=== PATIENT | male | born 1945 | race Caucasian/White ===

== ENCOUNTER 2016-09-22 07:26 | Emergency (ER) | payer OTHER ==
[2016-09-22 07:33] VITALS: PULSE 70
--- NOTE | 2016-09-22 07:39 | EDPHY ---
H & P Stated Complaint: left flank pain thinks kidney stone, hx of stones Time Seen by Provider: 09/22/16 07:38 - Personal History Current Tetanus/Diphtheria Vaccine: Yes Current Tetanus Diphtheria and Acellular Pertussis (TDAP): Yes - Medical/Surgical History Hx Asthma: No Hx Chronic Respiratory Disease: No Hx Diabetes: No Hx Cardiac Disease: No Hx Renal Disease: No Hx Cirrhosis: No Hx Alcoholism: No Hx HIV/AIDS: No Hx Splenectomy or Spleen Trauma: No Other PMH: kidney stone, ortho fx's. prostate ca, high cholesterol - Social History Smoking Status: Never smoked Constitutional: Initial Vital Signs Temperature (C) 36.4 C 09/22/16 07:30 Heart Rate 70 09/22/16 07:30 Respiratory Rate 18 09/22/16 07:30 Blood Pressure 121/71 H 09/22/16 07:30 O2 Sat (%) 91 L 09/22/16 07:30 O2 Delivery Mode Room Air Allergies/Adverse Reactions: No Known Allergies Allergy (Unverified 09/22/16 07:33) Home Medications: Medication Instructions Recorded Amoxicillin/Clavulanate Pot 875 mg PO BID #20 tab 09/22/16 [Augmentin 875 MG TAB (RX)] Aspirin [Aspirin 81mg (*)] 09/22/16 Hydrocodone/APAP 5/325 [Stanley 1 - 2 each PO Q4-6PRN PRN #20 tab 09/22/16 5/325] Ibuprofen 600 mg PO 09/22/16 Myrnetriq 09/22/16 Potassium Citrate [Urocit-K 5meq 0 meq PO 09/22/16 (*)] UBIDECARENONE [CO Q-10] 2.5 gm PO 09/22/16 Medical Decision Making ED Course/Re-evaluation: CHIEF COMPLAINT: Left flank pain HISTORY OF PRESENT ILLNESS: The patient is a 70 y/o male, with a history of 5 previous kidney stones, complaining of constant left flank pain onset last evening. He also has a history of cystic kidneys with baseline hematuria. He initially attributed his discomfort to eating too much ice cream last night but it worsened throughout the night. He notes he had a normal bowel movement and denies dysuria, hematuria, fever, or vomiting. He came into the ED because he has "history of not reacting to kidney stones fast enough" and was scheduled to fly back to [place] this morning. He has been having thoracic back pain from playing tennis recently and picked up a 30lb child yesterday. He feels like his pain has improved currently. REVIEW OF SYSTEMS: A 10 point review of systems was performed and is negative with the exception of the elements mentioned in the history of present illness. PHYSICAL EXAM: HR, BP, O2 Sat, RR. Temp noted General Appearance: Alert, well hydrated, appropriate, and non-toxic appearing. Head: Atraumatic without scalp tenderness or obvious injury Eyes: Pupils equal, round, reactive to light and accommodation, EOMI, no trauma , no injection. Ears: Clear bilaterally, no perforation, normal landmarks Nose: Atraumatic, no rhinorrhea, clear. Throat: There is no erythema or exudates, no lesions, normal tonsils, mucus membranes moist. Neck: Supple, nontender, no lymphadenopathy. Respiratory: No retractions, no distress, no wheezes, and no accessory muscle use. Lungs are clear to auscultation bilaterally. Cardiovascular: Regular rate and rhythm, no murmurs, rubs, or gallops. Good capillary refill all extremities. Gastrointestinal: Abdomen is soft, nontender, non-distended, no masses, no rebound, no guarding, no peritoneal signs. Musculoskeletal: Normal active ROM of all extremities, atraumatic. Neurological: Alert, appropriate, and interactive. The patient has normal DTRs and non-focal cranial nerves, motor, sensory, and cerebellar exam. Skin: No rashes, good turgor, no nodules on palpation. Past medical history: Prostate cancer, kidney cysts followed for the past several years, baseline hematuria. Past surgical history: nothing recent Family history: Noncontributory Social history: Family member at bedside. Scheduled to fly back to [place] this morning. DIAGNOSTICS/PROCEDURES/CRITICAL CARE TIME: Study: CT of the Abdomen/Pelvis without IV contrast Indication: flank pain Results: CT scan of the abdomen was obtained. The results of the study are uncomplicated mild descending diverticulitis, no perforation, no abscess, cystic kidney without obstructing stones, incidental finding of gall stones. The study was read by the radiologist, Dr. Salazar. I viewed the images myself on the PACS system. DIFFERENTIAL DIAGNOSIS: The differential diagnosis for the patient's flank pain included but was not limited to musculoskeletal causes, kidney stone, pyelonephritis, shingles, diverticulitis, appendicitis, and aortic aneurysm. MEDICAL DECISION MAKING: This is a largely healthy 70 y/o male from [place] who presents with mild-to- moderate left flank pain for the last 12 hours. He has a history of cystic kidneys and has passed at least 5 previous kidney stones. He has no CVA tenderness on exam. His urine dip shows RBCs, but the patient reports he has baseline microscopic hematuria from his cystic kidneys. He declines pain medication at this time. Plan for abdominal CT to rule out kidney stone or other abdominopelvic process. CT is positive for mild descending colon diverticulitis. He does have cystic kidneys without evidence of obstructing stone. The patient is well-aware of this condition and has been followed by his doctor for years. I discussed findings with the patient and answered all his questions. He will be discharged on Augmentin with recommendation to follow up with his PCP upon his return home. Return precautions given. He agrees with this plan. - Data Points Laboratory Results: 09/22/16 07:45 Urine Color YELLOW Urine Appearance CLEAR Urine pH 6.0 (5.0-7.5) Ur Specific Solon 1.018 (1.002-1.030) Urine Protein NEGATIVE (NEGATIVE) Urine Ketones NEGATIVE (NEGATIVE) Urine Blood 2+ H (NEGATIVE) Urine Nitrate NEGATIVE (NEGATIVE) Urine Bilirubin NEGATIVE (NEGATIVE) Urine Urobilinogen NEGATIVE EU EU (0.2-1.0) Ur Leukocyte Esterase NEGATIVE (NEGATIVE) Urine RBC 10-15 /hpf H /hpf (0-3) Urine WBC 1-3 /hpf /hpf (0-3) Ur Epithelial Cells NONE SEEN /lpf /lpf (NONE-1+) Urine Mucus TRACE /lpf /lpf (NONE-1+) Ur Culture Indicated? NOT INDICATED (NI) Urine Glucose NEGATIVE (NEGATIVE) Departure - Departure Disposition: Home, Routine, Self-Care Clinical Impression: Diverticulitis Qualifiers: Diverticulitis site: large intestine Diverticulitis bleeding: without bleeding Diverticulitis complication: without perforation or abscess Qualified Code(s): K57.32 - Diverticulitis of large intestine without perforation or abscess without bleeding Condition: Good Instructions: Diverticulitis (ED) Additional Instructions: 1. Take Augmentin as prescribed. Be sure to complete the entire prescription. 2. Use Stanley as prescribed if needed for pain. 3. Follow up with your primary care provider or GI doctor upon your return home. 4. Return to the ED for any worsening of condition. Referrals: KAMILAH KENNEY [Other] - As per Instructions Stand Alone Forms: Airline Excuse Prescriptions: Amoxicillin/Clavulanate Pot [Augmentin 875 MG TAB (RX)] 875 mg PO BID #20 tab Hydrocodone/APAP 5/325 [Stanley 5/325] 1 - 2 each PO Q4-6PRN PRN #20 tab PRN Reason: Pain, Moderate Report Scribed for: Mendez Cedeño Report Scribed by: Soumya Johnson Date of Report: 09/22/16 Time of Report: 07:47
[2016-09-22 08:06] LABS: COLOR YELLOW; LEUKOCYTE ESTERASE,URINE NEGATIVE (NEGATIVE); NITRITE,URINE NEGATIVE (NEGATIVE)
[2016-09-22 08:10] LABS: MUCUS TRACE /lpf (NONE-1+)
[2016-09-22] MEDS ORDERED: AMOXICILLIN/CLAVULANATE POT 875/125 MG TAB PO ONE (08:26)
[2016-09-22 09:07] VITALS: BP 120/75; RESP 16; TEMP 97.7; O2SAT 98
== END 2016-09-22 09:03 | disposition home or self-care (01) ==
DX: K57.32 Diverticulitis of large intestine without perforation or abscess without bleeding (principal); Z79.82 Long term (current) use of aspirin; Z85.46 Personal history of malignant neoplasm of prostate

== ENCOUNTER 2017-12-14 07:52 | Observation (INO) | payer OTHER ==
--- NOTE | 2017-12-14 08:30 | CPEKG ---
Heart Rate: 62 RR Interval: 968 P-R Interval: 204 QRSD Interval: 88 QT Interval: 432 QTC Interval: 439 P Caroleen: 57 QRS Caroleen: -15 T Wave Caroleen: 8 EKG Severity - BORDERLINE ECG - EKG Impression: SINUS RHYTHM EKG Impression: BORDERLINE LEFT AXIS DEVIATION EKG Impression: BORDERLINE T ABNORMALITIES, ANTERIOR LEADS Electronically Signed By: Coleman Guzman 14-Dec-2017 14:55:05
[2017-12-14] MEDS ORDERED: NS 500 ML IV ONE (08:34)
[2017-12-14 08:53] LABS: PLATELET COUNT 206 10^3/uL (150-400)
--- NOTE | 2017-12-14 09:37 | EDPHY ---
H & P Time Seen by Provider: 12/14/17 08:56 HPI/ROS: HPI Near fainting. 71-year-old male by private vehicle with his daughter. This patient is from [place]. He is visiting family here in [place]. He flew to [place] on Thursday from [place]. He reports that on Thursday and Thursday he had some diarrhea. He reports having intermittent lightheadedness at that time. He reports he then felt better Thursday. This morning he woke and had a small amount of loose stools. He reports that this morning he has felt very lightheaded and states that he feels like he is going to faint. He has had multiple episodes of this. Denies any associated headache, chest pain, palpitations, shortness of breath. No loss of sensation or weakness in his extremities. He reports that he has had this in the past but to a much lesser extent. Usually after a diarrheal illness. 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 He has a history of coronary artery disease and recently had an unremarkable stress echocardiogram. He has been on a Holter monitor which was not showed any remarkable findings. He denies vertigo. ROS: Constitutional: No fever, no chills. As above. Eyes: No discharge. No changes in vision. ENT: No sore throat. No nasal congestion or rhinorrhea. Respiratory: No cough. No shortness of breath. Cardiac: No chest pain, no palpitations. Gastrointestinal: No abdominal pain, no vomiting, no diarrhea. Genitourinary: No hematuria. No dysuria or increased frequency with urination. Musculoskeletal: No back pain. No neck pain. No myalgias or arthralgias. Skin: No rashes. Neurological: No headache. No focal weakness or altered sensation. Past medical history: Kidney stones, orthopedic injuries, prostatectomy, prostate cancer, hyperlipidemia, renal cysts, diverticulitis, coronary artery disease. Social history: Nonsmoker. Here with daughter. No alcohol. As above. Physical Exam: General Appearance: Alert, no distress. He is not in any distress. This patient is responding to questions appropriately and in full sentences. This patient appears well-hydrated and well-nourished. Eyes: Pupils equal and round and reactive to light at 2-1 mm bilaterally, no pallor or injection. No lid edema, erythema or injection. ENT, Mouth: Mucous membranes are moist. The pharyngeal tissues are unremarkable. No edema or swelling. No asymmetry suggestive of abscess. No erythema or exudates. Respiratory: There are no retractions, lungs are clear to auscultation with good air movement bilaterally. Cardiovascular: Regular rate and rhythm. No murmur. Gastrointestinal: Abdomen is soft and nontender, no masses, bowel sounds normal. No focal tenderness at McBurney's point. No Gatica sign. Neurological: Motor sensory function is grossly intact. Cranial nerves are normal. Gait is normal. Skin: Warm and dry, no rashes. Musculoskeletal: Neck is supple and nontender. Extremities are symmetrical. All joints range without pain or impingement. Psychiatric: No agitation. No depression. Database: EKG: EKG time is 8:20 a.m.; EKG shows a narrow complex normal sinus rhythm with a ventricular rate of 62. The CO, QRS, QT intervals are within normal limits. T- wave flattening and inversion leads V1 through V3. There are no other ST-T wave changes indicative of ischemic or injury pattern. No evidence of right heart strain. Interpreted by me. Imaging: Procedures: Emergency department course: Vital signs reviewed. He is hypertensive but vital signs are otherwise normal. Neurologically the patient is stable. EKG obtained and reviewed by myself. He will be given 500 cc of IV normal saline. 9:15 a.m., patient re-evaluated. Resting comfortably at this time. Vital signs reviewed. Narrow complex sinus rhythm with ventricular rate of 65 on the monitor. Blood pressure 157/92. Pulse oximetry 96% on room air. Results of diagnostic workup discussed with him and his daughter. He states that he still feels intermittently lightheaded. Again he denies vertigo. Repeat neurologic Assessment is nonfocal. I discussed admission to our hospitalist service for telemetry monitoring and further evaluation. He consents. Hospitalist paged. 9:45 a.m., spoke with on-call hospitalist. Patient accepted for admission to telemetry observation by Dr. Cedrick Mansfield. Patient's remaining emergency department course under my care uneventful. He was admitted in stable condition. Differential Diagnosis: The differential diagnosis on this patient includes but is not limited to vasovagal syncope, arrhythmia. Pulmonary embolism, subarachnoid hemorrhage, CVA , acute CT unlikely. This represents a partial list of diagnoses considered. These considerations are based on history, physical exam, past history, reassessment and diagnostic testing. Smoking Status: Never smoked Constitutional: Initial Vital Signs Temperature (C) 36.9 C 12/14/17 08:04 Heart Rate 67 12/14/17 08:04 Respiratory Rate 18 12/14/17 08:04 Blood Pressure 182/100 H 12/14/17 08:04 O2 Sat (%) 97 12/14/17 08:04 O2 Delivery Mode Room Air Allergies/Adverse Reactions: No Known Allergies Allergy (Unverified 12/14/17 08:02) Home Medications: Medication Instructions Recorded Aspirin [Aspirin 81mg (*)] 09/22/16 Ibuprofen 600 mg PO 09/22/16 Myrnetriq 09/22/16 Potassium Citrate [Urocit-K 5meq 0 meq PO 09/22/16 (*)] UBIDECARENONE [CO Q-10] 2.5 gm PO 09/22/16 Multivitamins 12/14/17 Medical Decision Making - Data Points Laboratory Results: Laboratory Results 12/14/17 08:40 12/14/17 08:40 12/14/17 12/14/17 12/14/17 08:45 08:40 08:40 WBC 5.15 10^3/uL 10^3/uL (3.80-9.50) RBC 4.97 10^6/uL 10^6/uL (4.40-6.38) Hgb 16.2 g/dL g/dL (13.7-17.5) Hct 45.2 % % (40.0-51.0) MCV 90.9 fL fL (81.5-99.8) MCH 32.6 pg pg (27.9-34.1) MCHC 35.8 g/dL g/dL (32.4-36.7) RDW 12.4 % % (11.5-15.2) Plt Count 206 10^3/uL 10^3/uL (150-400) MPV 9.2 fL fL (8.7-11.7) Neut % (Auto) 63.2 % % (39.3-74.2) Lymph % (Auto) 27.2 % % (15.0-45.0) Livingston % (Auto) 8.0 % % (4.5-13.0) Eos % (Auto) 1.0 % % (0.6-7.6) Baso % (Auto) 0.4 % % (0.3-1.7) Nucleat RBC Rel Count 0.0 % % (0.0-0.2) Absolute Neuts (auto) 3.26 10^3/uL 10^3/uL (1.70-6.50) Absolute Lymphs (auto) 1.40 10^3/uL 10^3/uL (1.00-3.00) Absolute Monos (auto) 0.41 10^3/uL 10^3/uL (0.30-0.80) Absolute Eos (auto) 0.05 10^3/uL 10^3/uL (0.03-0.40) Absolute Basos (auto) 0.02 10^3/uL 10^3/uL (0.02-0.10) Absolute Nucleated RBC 0.00 10^3/uL 10^3/uL (0-0.01) Immature Gran % 0.2 % % (0.0-1.1) Immature Gran # 0.01 10^3/uL 10^3/uL (0.00-0.10) Sodium 141 mEq/L mEq/L (135-145) Potassium 3.9 mEq/L mEq/L (3.3-5.0) Chloride 104 mEq/L mEq/L (97-110) Carbon Dioxide 24 mEq/l mEq/l (22-31) Anion Gap 13 mEq/L mEq/L (8-16) BUN 19 mg/dL mg/dL (7-23) Creatinine 0.9 mg/dL mg/dL (0.7-1.3) Estimated GFR > 60 Glucose 105 mg/dL H mg/dL (70-100) Calcium 9.2 mg/dL mg/dL (8.5-10.4) POC Troponin I 0.00 ng/mL ng/mL (0.00-0.08) Medications Given: Discontinued Medications Sodium Chloride (Ns) 500 mls @ 1,000 mls/hr IV EDNOW ONE PRN Reason: Protocol Stop: 12/14/17 09:03 Last Admin: 12/14/17 08:48 Dose: 500 mls Point of Care Test Results: Chemistry 12/14/17 08:45 POC Troponin I 0.00 ng/mL ng/mL (0.00-0.08) Departure - Departure Disposition: [facility] Inpatient Acute Clinical Impression: Near syncope Referrals: AMINA MCCORMICK MD [Other] - As per Instructions
[2017-12-14] MEDS ORDERED: ONDANSETRON DISINTEGRATING 4 MG TAB PO PRN (12:05)
[2017-12-14] MEDS ORDERED: ACETAMINOPHEN 325 MG TAB PO PRN (12:05)
[2017-12-14] MEDS ORDERED: ONDANSETRON 4 MG/2 ML VIAL IVP PRN (12:05)
[2017-12-14] MEDS ORDERED: CARBOXYMETHYLCELLULOSE 1% 0.4 ML DROPERETTE EACHEYE PRN (12:08)
--- NOTE | 2017-12-14 12:57 | GHP ---
[f rep st] HISTORY AND PHYSICAL DATE OF ADMISSION: 12/14/2017 CHIEF COMPLAINT: Presyncope. HISTORY OF PRESENT ILLNESS: This is a 71-year-old man who is visiting from [place] who presents wit h a few days of presyncope. He flew in 3 days prior to presentation. The flight was very bumpy. [facility] passengers were ill afterwards and he felt slightly nauseous. He did not have any emesis. He has had 3 episodes of presyncope since then. One was the day he arrived, the next was the day after he arrived, the 3rd was today. These are described as a feeling that he is going to pass out. He says that he has had vasovagal episodes before in which he has also been presyncopal, felt similar; althou gh, he typically gets rectal pressure when he has these vasovagal episodes. He did not have that ove r the last few days. He had 2 episodes of diarrhea on Thursday, normal bowel movement today. He has a history of coronary artery disease that was diagnosed by calcium score. He had a followup nuclear stress test which showed a possible old infarct; although, eventually, this was thought to be most l ikely artifact. He had a recent stress echocardiogram which he says is normal. He is typically quit e active. He plays tennis and walks an entire 18 holes of golf. He has no angina or dyspnea with th at. He also notes that he had no chest pain shortness of breath, or palpitations with these presynco pal episodes. He has never had a blood clot before; although, he did not get up at all on his flight from [place]. He is feeling better when I am talking to him; however, he says that this comes in p aroxysms. PAST MEDICAL/SURGICAL HISTORY: 1. Coronary artery disease, as above. 2. Prostate cancer status post surgery as well as hormone therapy with an undetectable PSA. 3. White coat hypertension. 4. Diverticulitis. 5. Renal cyst that he is following annually. 6. Kidney stones. PRIMARY CARE PHYSICIAN: Dr. Lee. MEDICATIONS: Please see medication reconciliation. ALLERGIES: No known drug allergies. FAMILY HISTORY: Reviewed and noncontributory. SOCIAL HISTORY: He is from [place]. He is quite active. He is visiting his daughter as well as rosamaria sullivan who live in [place]. REVIEW OF SYSTEMS: A 10-point review of systems is conducted and is negative except per HPI. PHYSICAL EXAM: VITAL SIGNS: Blood pressure 157/101, heart rate 61, respiration rate 15, saturating at 94% on room air, temperature is 37.1. IN GENERAL: The patient is a very pleasant man who is rest ing comfortably fully participating in the interview. HEENT: Shows him to be normocephalic, atrauma tic. CARDIOVASCULAR EXAM: Shows a regular rate and rhythm. I do not appreciate any murmurs, rubs, or gallops. PULMONARY EXAM: Shows him to be in no respiratory distress. Lungs are clear to auscult ation bilaterally. ABDOMEN: Abdominal exam is soft, nontender, nondistended. SKIN: Exam shows no rash. : Exam shows no Garcia. NEUROLOGIC: Exam shows him to be alert and oriented x3. He is mov ing all extremities. He has a nonfocal neurologic exam. PSYCHIATRIC: Exam shows normal mood and af fect. LABS: Basic metabolic panel is normal. Troponin was negative. CBC is unremarkable. DATA: 1. I reviewed his chart including note by Dr. Guzman. 2. I personally viewed and interpreted his EKG. This shows sinus rhythm. He has mild T-wave invers ions in II and III with U wave in V4/V5. IMPRESSION AND PLAN: 1. Presyncope: Differential includes pulmonary embolus, cardiac dysrhythmia, vasovagal, cardiac str uctural disease. We will check D-dimer. If that is positive, we will check CT angiogram of his ches t. We will check echocardiogram. We will monitor on telemetry. We will check one additional tropon in. We will check orthostatics. 2. Coronary artery disease: Diagnosed by calcium score as above. Questionable infarct versus artif act on his previous nuclear test. He is medically optimized on aspirin and Crestor. 3. Prostate cancer: He tells me that he has an undetectable PSA. 4. Renal cyst: He needs to follow up as an outpatient. /[id number]/MODL
--- NOTE | 2017-12-14 16:35 | ECHO ---
[email or web address] [address] [address] Main: [phone] Fax: Transthoracic Echocardiogram Name: WEI MURRAY MR#: [id number] Study Date: 12/14/2017 Study Time: 02:37 PM Date of : 1945 Age: 71 year(s) Height: 180.3 cm (71 in.) Weight: 86.18 kg (190 lb.) BSA: 2.06 m2 Gender: Male Examination: Echo Indication: Cardiac: syncope Image Quality: Adequate Contrast: Requested by: Cedrick Mansfield BP: 157 mmHg/101 mmHg Heart Rate: Rhythm: Indication: Cardiac: syncope Procedure Staff Contract Processor: Anita Angel RDCS Reading Physician: Jasen Rivera MD Requesting Provider: Conclusions: Normal global systolic LV function. The ejection fraction is visually estimated to be 60 %. Mild mitral valve regurgitation is present. Mild tricuspid regurgitation is present. The pulmonary artery pressure is normal. Right ventricular systolic pressure measures 20mmHg. Dilated ascending aorta. Mildly dilated aortic root measuring 4.2 cm. Measurements: Chambers Valvular Assessment AV/MV Valvular Assessment TV/PV Normal Normal Normal Name Value Range Name Value Range Name Value Range Ao Genoveva (2D): 4.2 cm (1.4 cm-2.6 AV Vmax: 1.23 m/s (1 m/s-1.7 TR Vmax: 1.95 mm/s ( - ) cm) m/s) TR PGmax: 15 mmHg ( - ) IVSd (2D): 1.1 cm (0.6 cm-1.1 AV maxP mmHg ( - ) syst. PAP: 20 mmHg ( - ) cm) AV meanP mmHg ( - ) PV Vmax: 0.81 m/s (0.6 m/s-0.9 LVDd (2D): 3.5 cm (4.2 cm-5.9 LVOT Vmax: 0.94 m/s (0.7 m/s-1.1 m/s) cm) m/s) PV PGmax: 3 mmHg ( - ) LVDs (2D): 2.4 cm (2.1 cm-4 DEBORAH (Vmax): 2.6 cm2 ( - ) cm) DEBORAH (VTI): 3.1 cm ( - ) LVPWd (2D): 1.1 cm (0.6 cm-1 MV E Vmax: 0.43 m/s ( - ) cm) MV A Vmax: 0.72 m/s ( - ) LVOTd 2.1 cm 2.1 cm mm MV E/A: 0.60 ( - ) LVEF (BP): 68 % (>=55 %) MV PHT: 0.111 s ( - ) Visual EF: 60 % MVA (PHT): 2.0 s ( - ) Continued Measurements: Chambers Valvular Assessment AV/MV Valvular Assessment TV/PV Patient: WEI MURRAY Study Date: 12/14/2017 Page 1 of 2 02:37 PM Name Value Name Value Name Value LADs: 3.4 cm MV DecTime: 335 m/s CVP (est.): 5 mmHg LADs Lon.3 cm MV E/E' Septal: 8.20 LA Area: 17.4 cm2 MV E/E' Lateral: 4.80 LA Volume: 61 ml LA Volume Index: 29.6 ml/m2 RA Area: 17.5 cm2 Additional Vessels Name Value Ao Ascendin.9 cm Inferior Vena Cava: 1.3 cm Findings: Left Ventricle: Normal size left ventricle. No LV hypertrophy. Normal global systolic LV function. The ejection fraction is visually estimated to be 60 %. No regional wall motion abnormality. Diastolic dysfunction is present. . Right Ventricle: Normal size right ventricle. Normal RV function. Left Atrium: The left atrium is normal in size. Right Atrium: The right atrium is normal in size. Mitral Valve: The mitral valve is normal in appearance and function. Mild mitral valve regurgitation is present. No mitral stenosis is present. Aortic Valve: The aortic valve is normal in appearance and function. There is no significant aortic valve regurgitation. No aortic valve stenosis is present. Tricuspid Valve: The tricuspid valve is normal in appearance and function. Mild tricuspid regurgitation is present. The pulmonary artery pressure is normal. Right ventricular systolic pressure measures 20mmHg. Pulmonic Valve: The pulmonic valve is normal in appearance and function. There is no pulmonic regurgitation seen. Aorta: Dilated ascending aorta. The aorta is normal. Mildly dilated aortic root measuring 4.2 cm. Normal size ascending aorta measuring 3.9 cm. IVC: The IVC is normal sized. Pericardium: No pericardial effusion. No pleural effusion. (No Signature Object) Patient: WEI MURRAY Study Date: 12/14/2017 Page 2 of 2 02:37 PM [id number]
[2017-12-14] MEDS ORDERED: ROSUVASTATIN CALCIUM 10 MG TAB PO SCH (21:00)
[2017-12-14] MEDS ORDERED: POTASSIUM CITRATE 10 MEQ TAB PO SCH (21:00)
[2017-12-14] MEDS ORDERED: ASPIRIN 81 MG CHEWABLE TAB PO SCH (21:00)
[2017-12-15 07:46] VITALS: BP 138/96
[2017-12-15] MEDS ORDERED: MULTIVITAMINS 1 EACH TAB PO SCH (09:00)
[2017-12-15] MEDS ORDERED: Mirabegron [Myrbetriq] 50 MG PO SCH (09:00)
[2017-12-15] MEDS ORDERED: ENOXAPARIN 40 MG/0.4 ML SYR SC SCH (09:00)
--- NOTE | 2017-12-15 10:19 | ASMTCMCOM ---
CM Note CM Note Notes: Patient with multiple days of presyncope. He is traveling to [place] to visit his daughter and granddaughter, and his symptoms began shortly after his flight. Cardiac workup pending. I anticipate he'll discharge home with his daughter. If he has any Case Management needs, we will happily assist. Date Signed: 12/15/2017 10:19 AM Electronically Signed By:Pearl Rivas RN
--- NOTE | 2017-12-15 11:07 | GDS ---
[f rep st] DISCHARGE SUMMARY DIAGNOSES: 1. Presyncope. 2. Coronary artery disease. 3. History of prostate cancer. 4. Renal cyst. 5. Mildly dilated ascending aorta at 4.2 cm. HOSPITAL COURSE: A 71-year-old man admitted with presyncopal episodes. Workup including telemetry monitoring, D-dimer testing, echocardiogram, have been relatively unremarkable. I think this is most consistent with a vasovagal episode, as he has had some nausea after a turbulent plane flight here from [place]. Echocardiogram did reveal a 4.2 cm mildly dilated aortic root, which he will need to follow as an outpatient. I have given him this information. He is visiting from [place]. 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 He has coronary artery disease that was diagnosed by calcium score and questionable positive stress test versus artifact. I discussed all this with both him, as well as his daughter. DISPOSITION: He is discharged in stable condition. Billing: I spent more than 30 minutes on the day of discharge coordinating care. /[id number]/MODL MTDD
== END 2017-12-15 12:03 | disposition home or self-care (01) ==
LOC: F2W 11:17
PROVIDERS: ADMIT Student in an Organized Health Care Education/Training Program; ATTEND Student in an Organized Health Care Education/Training Program
DX: R55 Syncope and collapse (principal); E86.9 Volume depletion, unspecified; I25.10 Atherosclerotic heart disease of native coronary artery without angina pectoris; N28.1 Cyst of kidney, acquired; I77.810 Thoracic aortic ectasia; E78.5 Hyperlipidemia, unspecified; Z87.442 Personal history of urinary calculi; Z87.19 Personal history of other diseases of the digestive system; Z85.46 Personal history of malignant neoplasm of prostate
CPT/HCPCS: 71046; 93005; 93306; 96360; 99285; G0378; 84484-PO; J1650